=== PATIENT | male | born 1940 | race Caucasian/White ===

== ENCOUNTER 2019-11-10 06:49 | Inpatient (IN) | payer MEDICARE ==
[2019-11-10] MEDS ORDERED: niCARdipine 20MG In NaCl 20 MG/200 ML BAG ONE (06:59)
[2019-11-10] MEDS ORDERED: Morphine 4 MG/ML VIAL ONE ×3 (07:00→08:34)
[2019-11-10] MEDS ORDERED: Ondansetron PF 4 MG/2 ML Vial ONE ×3 (07:05→08:36)
[2019-11-10 07:15] LABS: #Basophils 0.1 thou/uL (0.0-0.2); #Eosinphils 0.3 thou/uL (0.0-0.7); #Lymphocytes 2.6 thou/uL (1.20-3.40); #Neutrophils 10.6 thou/uL (1.40-6.50); %Basophils 0.8 % (0.0-1.0); %Eosinophils 2.1 % (0.0-10.0); %Lymphocytes 17.5 % (21.0-51.0); %Monocytes 6.9 % (0.0-10.0); %Neutrophils 72.7 % (42.0-75.0); Hemoglobin 15.4 g/dL (14.0-18.0); Mean Corpuscular HGB CONC 31.6 g/dL (32.0-36.0); Mean Corpuscular Hemoglobin 29.3 pg (27.0-31.0); Mean Corpuscular Volume 92.8 fL (78.0-98.0); Mean Platelet Volume 7.9 fL (7.4-10.4); Platelet Count 263 thou/uL (130-400); RBC Distribution Width 11.8 % (11.5-14.5); Red Blood Cell (RBC) Count 5.24 mill/uL (4.70-6.10); White Blood Cell (WBC) Count 14.5 thou/uL (4.8-10.8)
[2019-11-10] MEDS ORDERED: Fentanyl 100 MCG/2 ML VIAL ONE ×2 (07:16→09:54)
[2019-11-10 07:23] LABS: Prothrombin Time 13.4 sec (12.0-14.7)
[2019-11-10 07:38] LABS: ALT (SGPT) 21 U/L (8-55); AST (SGOT) 24 U/L (5-34); Albumin 4.1 g/dL (3.4-4.8); Alkaline Phosphatase 64 U/L (40-110); Anion Gap 17 mmol/L (10-20); BUN (Urea Nitrogen) 15 mg/dL (8.4-25.7); Bilirubin, Total 0.6 mg/dL (0.2-1.2); Calc. Creatinine Clearance 0 mL/min (70-130); Calcium 8.8 mg/dL (7.8-10.44); Carbon Dioxide 22 mmol/L (23-31); Chloride 99 mmol/L (98-107); Estimated GFR-MDRD 57; Globulin 2.4 g/dL (2.4-3.5); Glucose 237 mg/dL (83-110); Lipase 28 U/L (8-78); Potassium 3.4 mmol/L (3.5-5.1); Protein, Total 6.5 g/dL (5.8-8.1); Sodium 135 mmol/L (136-145)
[2019-11-10 07:39] LABS: PTT 20.3 sec (22.9-36.1)
--- NOTE | 2019-11-10 07:43 | RAD ---
EXAM: Single view of the chest HISTORY: Back pain and upper abdominal pain COMPARISON: 06/05/2011 FINDINGS: Single view of the chest shows a normal sized cardiomediastinal silhouette. The patient is status post sternotomy. There is no evidence of consolidation, mass, or pleural effusion. The bones are unremarkable IMPRESSION: No evidence of acute cardiopulmonary disease
--- NOTE | 2019-11-10 08:05 | CT ---
Exam: CTA chest with 3-D rendering: CTA abdomen with 3-D rendering: HISTORY: Patient woke up with back pain this morning. COMPARISON: None TECHNIQUE: CT angiogram of the thoracic and abdominal aorta performed in the axial plane. Three-dimen sional reformatted images are submitted for interpretation. FINDINGS: Chest CT: Mediastinum: No mass, lymphadenopathy or hematoma Heart: Normal heart size. No significant pericardial fluid. Coronary arteries: There is coronary calcification. Trachea and central bronchi: Patent Pleural spaces: No pleural effusion. Right lung: Dependent atelectatic changes. No suspicious masses, consolidation or nodules Left lung: Dependent atelectatic changes. No suspicious masses, consolidation or nodules Pneumothorax: None Abdomen CT: Gallbladder: No CT evidence of cholecystitis Portal vein: Patent Solid organs:There are multiple hypodensities scattered throughout the hepatic parenchyma compatible with hepatic cysts. Largest cyst is in the left hepatic lobe. This bilobed cyst measures 5.3 x 2.9 cm Kidneys: Symmetric enhancement. No obstructive uropathy. Hypodensities in the left or right renal cor valentin are favored to represent cysts. Left renal cortical cyst measures 1.8 x 2.0 cm. Right renal cortical cyst measures 1.2 x 1.3 cm. Second right renal cortical cyst measures 1.7 x 1.2 cm. Mesentery: No mass, lymphadenopathy or free air. There is stranding of the abdominal mesentery adjace nt to multiple loops of small bowel. There is bowel wall edema along with intraluminal fluid and mild dilatation of the lumen. Alimentary canal: Multiple fluid-filled dilated loops of small bowel with bowel wall edema. There yolanda ears to be a right lower quadrant internal hernia. The point of transition appears to be on coronal image 45 through 47 and sagittal image 68. There is mild swirling of abdominal mesenteric vessels. CT ANGIOGRAM: No CT evidence for aortic aneurysm or dissection. IMPRESSION: 1. No CT evidence for aortic aneurysm or aortic dissection. 2. Small bowel obstruction with bowel edema as well as mesenteric edema secondary to an internal shyann ia in the right lower quadrant. 3. Results of study discussed with Dr. Loco 11/10/2019 at 8:02 AM code CR
[2019-11-10] MEDS ORDERED: Benzocaine 20% Spray 60 ML CAN ONE (08:14)
[2019-11-10] MEDS ORDERED: Piperacillin/Tazobactam 3.375 GM VIAL ONE (08:17)
[2019-11-10] MEDS ORDERED: Morphine 2 MG/ML SYRINGE ONE (08:34)
[2019-11-10] MEDS ORDERED: Ketorolac Tromethamine 30 MG/ML VIAL ONE (08:34)
[2019-11-10] MEDS ORDERED: Iopamidol-370 76% 500 ML 1 ML ONE (08:46)
[2019-11-10] MEDS ORDERED: EPINEPHrine 1 MG/ML AMP ONE (09:04)
[2019-11-10] MEDS ORDERED: Bupivacaine PF 0.5% 30 ML VIAL ONE (09:04)
--- NOTE | 2019-11-10 09:32 | HP ---
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 Jemal Loco. The patient has never had such pain before. He underwent a CT dissection protocol revealing findings consistent with internal hernia and a bowel obstruction. The patient denies having prior abdominal operations. He is writhing in pain. NG tube has been placed. He states he cannot void, and a Maier catheter has been ordered. White count 14 and hemoglobin 15. Basic metabolic profile normal. Glucose 237. ALLERGIES: NONE. SOCIAL HISTORY: Tobacco, none. Alcohol, none. MEDICATIONS: Not listed, but he takes antihypertensive and cholesterol medications. PAST SURGICAL HISTORY: Coronary artery bypass grafting [place] [address] Basilio Garcia, follows with Dr. Brown every 6 months. Last saw him 6 months ago. He last had a normal stress test 3 years ago. He is asymptomatic from a cardiac standpoint. PAST MEDICAL HISTORY: Peptic ulcer disease, controlled endoscopically, in the past coagulated; elevated cholesterol; hypertension; stable coronary artery disease, no coronary symptoms. REVIEW OF SYSTEMS: Ten-point noncontributory. FAMILY HISTORY: Noncontributory. The patient is , lives with his who is in good health. He has been for 40 years. PHYSICAL EXAMINATION: GENERAL: The patient is in pain. He is an emesis bag in his hand. Alert and oriented x3. Cranial nerves intact. NEUROLOGICAL: Intact. No deficits. LUNGS: Clear to auscultation. CARDIAC: Regular rate and rhythm. No murmur or gallop. ABDOMEN: Soft, mildly distended, non-tympanitic, mildly tender, but no peritoneal signs. EXTREMITIES: No ankle edema. VITAL SIGNS: Blood pressure 140/70, heart rate 78, respiratory rate 18. LABORATORY DATA: Sodium 135, potassium 3.4, BUN 15, White count 14 hemoglobin 15, platelet count 263,000. ASSESSMENT AND PLAN: 1. Acute abdominal pain. CAT scan suggested an internal hernia with characteristic mesenteric edema and swelling. Despite not having prior operations, we will proceed with laparoscopy and open procedure as indicated, possible bowel resection. He understands the risks and benefits, consents. 2. Coronary artery disease, stable. Past coronary artery bypass grafting in 2000. No coronary symptoms. 3. Hypertension. 4. Elevated cholesterol. Job ID: [id number]
[2019-11-10] MEDS ORDERED: Rocuronium Bromide 10 MG/ML (10ML VIAL) ONE (10:51)
[2019-11-10] MEDS ORDERED: Lidocaine 1% PF 5 ML VIAL ONE (10:51)
[2019-11-10] MEDS ORDERED: PHENYLEPHRINE-NS 100 MCG/ML 10 ML SYRINGE ONE (10:51)
[2019-11-10] MEDS ORDERED: PROPOFOL 200 MG/20 ML VIAL ONE (10:51)
[2019-11-10] MEDS ORDERED: Vecuronium 10 MG VIAL ONE (10:51)
[2019-11-10] MEDS ORDERED: Succinylcholine Chloride 20 MG/ML 10 ml SYRINGE FS ONE (10:51)
[2019-11-10] MEDS ORDERED: SUGAMMADEX SODIUM 200 MG/2 ML VIAL ONE (11:09)
[2019-11-10] MEDS ORDERED: hydrALAZINE 20 MG/ML VIAL SLOW IVP PRN (12:21)
[2019-11-10] MEDS ORDERED: Lorazepam 2 MG/ML VIAL SLOW IVP PRN ×2 (12:21→12:47)
[2019-11-10] MEDS ORDERED: Morphine 2 MG/ML VIAL SLOW IVP PRN ×2 (12:21→12:47)
[2019-11-10] MEDS ORDERED: Morphine 4 MG/ML VIAL SLOW IVP PRN (12:21)
[2019-11-10] MEDS ORDERED: Midazolam HCl 2 mg/2 ml Vial ONE (12:23)
[2019-11-10] MEDS ORDERED: fentaNYL Citrate/PF 2,000 MCG in Sodium Chloride 0.9% 60 ML IV SCH (12:47)
[2019-11-10] MEDS ORDERED: Propofol 1,000 MG/100 ML VIAL IV PRN (12:47)
[2019-11-10] MEDS ORDERED: DISCONTINUE PREVIOUS NARCOTIC PAIN MEDICATIONS AND BENZODIAZEPINES FS SCH (12:47)
[2019-11-10] MEDS ORDERED: Fentanyl BOLUS 250 ML IVPB PRN (12:47)
[2019-11-10] MEDS ORDERED: Propofol BOLUS 1,000 MG/100 ML VIAL IV PRN (12:47)
[2019-11-10] MEDS ORDERED: Ventilator Sedation Protocol 1 EACH FS SCH (13:00)
--- NOTE | 2019-11-10 13:07 | RAD ---
Chest one view HISTORY: Dyspnea. Intubated. COMPARISON: Earlier exam on the same date. FINDINGS: Cardiac silhouette is magnified by projection. Pulmonary vasculature is unremarkable. Mediastinum is midline with postoperative changes. Tip of an endotracheal catheter overlies the thora cic inlet. Nasogastric tube is coiled over the stomach. There is calcification the aorta. Mildly suspicious is bases. Pneumothorax. IMPRESSION : Lines and tubes as detailed above. No active cardiopulmonary abnormalities are otherwise demonstrated .
[2019-11-10 13:21] LABS: Actual Bicarbonate (HCO3a) 18.7 mEq/L (22-28); Base Excess (BEa) -6.8 mEq/L (-2.0 to +3.0); CO2 Tension 37.6 mmHg (35.0-45.0); Carboxyhemoglobin (COHb) 0.4 gm% (0.0-3.0); Hemoglobin (Hb) 14.6 g/dL (14.0-18.0); Potassium - ABG Lab 4.66 mmol/L (3.70-5.30); Puncture Site LRA; pH, Arterial 7.32 (7.35-7.45)
[2019-11-10] MEDS ORDERED: Morphine 2 MG/ML VIAL ONE (14:06)
[2019-11-10] MEDS: Piperacillin/Tazobactam 4.5 GM in Sodium Chloride 0.9% 100 ML IVPB SCH ×2 (14:14→19:45)
[2019-11-10] MEDS ORDERED: Lorazepam 2 MG/ML VIAL ONE (14:43)
[2019-11-10] MEDS ORDERED: Pantoprazole 40 MG VIAL IVP SCH (14:45)
--- NOTE | 2019-11-10 15:45 | CON ---
DATE OF CONSULTATION: 11/10/2019 REASON FOR CONSULTATION: Postoperative ventilator management. CONSULTING PHYSICIAN: Arron Blount MD The following encompasses 35 minutes of critical care time. HISTORY OF PRESENT ILLNESS: Mr. Warner is a 79-year-old who presented to the ER earlier today with central abdominal pain that started this morning about 4 o'clock. He was taken to the OR for exploratory laparotomy and found to have a large segment of small bowel, which was ischemic. The adhesion obstructing was removed. The patient has been left open to see what the bowel looks like tomorrow - whether or not he will need resection or he will get recovery. PAST MEDICAL HISTORY: 1. Coronary artery disease, requiring bypass surgery. 2. Hyperlipidemia. 3. Hypertension. PAST SURGICAL HISTORY: Bypass surgery. REVIEW OF SYSTEMS: Cannot be obtained because he is on ventilator. ALLERGIES: NONE. MEDICATIONS: Prior to admission, not available for review at this time. Current inpatient medications listed - reviewed on chart. PHYSICAL EXAMINATION: VITAL SIGNS: Heart rate 82, blood pressure 89/62, and O2 saturation 100%, and respiratory rate 18. GENERAL: He is currently intubated and sedated. HEENT: Unremarkable. NECK: No adenopathy or JVD. LUNGS: Clear. CARDIAC: S1 and S2. Regular. ABDOMEN: Open wound VAC in place. EXTREMITIES: No clubbing, cyanosis, or edema. IMAGING DATA: Chest x-ray shows no mass, effusion, or infiltrate. LABORATORY DATA: White blood cell count 14, hematocrit , and platelet count 263. ABG is pending. Sodium 135, potassium 3.4, chloride 99, CO2 of , BUN 15, creatinine 1.2, and glucose 237. Lactate 3.8. ASSESSMENT: 1. Ischemic bowel. 2. Acute respiratory failure, requiring mechanical ventilation - mainly left intubated for second-look operation tomorrow. PLAN: We will be happy to follow with you. Reviewed orders on chart. I will add some Protonix. We will follow. Job ID: [id number]
--- NOTE | 2019-11-10 15:59 | OP ---
DATE OF PROCEDURE: 11/10/2019 PREOPERATIVE DIAGNOSES: 1. Acute vascular insufficiency. 2. Internal hernia in a patient without prior surgery, abdominal. POSTOPERATIVE DIAGNOSES: 1. Acute vascular insufficiency. 2. Internal hernia in a patient without prior surgery, abdominal. 3. Omental adhesion to the pelvis, causing internal hernia and ischemic bowel. PROCEDURES PERFORMED: 1. Exploratory laparoscopy, converted to laparotomy. 2. Lysis of adhesions. 3. Abdominal washout. 4. ABThera placement (open abdomen) with plan to return to the operating room tomorrow to assess ischemic bowel recovery. ANESTHESIA: General, local with 0.5% Marcaine 30 mL, mixed with 1% Xylocaine with epinephrine 20 mL. DESCRIPTION OF PROCEDURE: The patient was taken to the operating room where under general anesthesia, abdomen was prepared with ChloraPrep and draped in routine fashion. Local anesthetic was infiltrated in the skin and subcutaneous tissue about the laparoscopic port sites. Left lateral subcostal incision made. Pneumoperitoneum to 15 mmHg obtained with a Veress needle, replacing with a 5 port. Left lateral midabdominal incision made and a 5 port placed. Left lower quadrant lateral incision made and a 5 port placed. Once the laparoscope was inserted, ischemic bowel was evident and conversion to laparotomy made. Midline incision made, centered about the umbilicus, carried down to skin, subcutaneous tissue, and midline fascia. Omentum was adhesed to the patient's right lower quadrant, creating a window in adhesion and acute vascular insufficiency of a long segment of small bowel. This omental adhesion was divided with the LigaSure. The small bowel was then assessed and it was of questionable viability, but not frankly necrotic. Thus, abdomen was washed out with saline, and sponge, instrument, and needle counts were correct. ABThera placed with open abdomen with intention to return to the operating room tomorrow to assess bowel viability and need for resection. Job ID: [id number]
[2019-11-10] MEDS ORDERED: Sodium Chloride 0.9% 30 ML ONE (19:52)
[2019-11-10] MEDS: Enoxaparin Sodium 40 MG/0.4 ML SYRINGE SC SCH (20:37)
[2019-11-10] MEDS: Lactated Ringer's 1,000 ML IV SCH (20:38)
[2019-11-10 22:56] VITALS: BMI 23.1
[2019-11-11] MEDS: Lactated Ringer's 1,000 ML IV SCH ×5 (00:50→21:34)
[2019-11-11] MEDS: Piperacillin/Tazobactam 4.5 GM in Sodium Chloride 0.9% 100 ML IVPB SCH ×4 (01:31→21:35)
[2019-11-11 05:08] LABS: Band 21 % (5-11); Hemoglobin 13.4 g/dL (14.0-18.0); Hypochromia SLIGHT = 6-15 cells (100X) (0-5/hpf); Lymphocytes 5 % (21-51); MDiff Complete? YES; Mean Corpuscular HGB CONC 31.4 g/dL (32.0-36.0); Mean Corpuscular Volume 92.5 fL (78.0-98.0); Mean Platelet Volume 7.7 fL (7.4-10.4); Monocytes 2 % (0-10); Neutrophil 72 % (42-75); Platelet Count 234 thou/uL (130-400); Platelet Morphology Comment Appears Adequate; RBC Distribution Width 11.9 % (11.5-14.5); Red Blood Cell (RBC) Count 4.63 mill/uL (4.70-6.10); White Blood Cell (WBC) Count 19.1 thou/uL (4.8-10.8)
[2019-11-11 05:11] LABS: Anion Gap 11 mmol/L (10-20); BUN (Urea Nitrogen) 24 mg/dL (8.4-25.7); Calc. Creatinine Clearance 64 mL/min (70-130); Calcium 7.7 mg/dL (7.8-10.44); Carbon Dioxide 23 mmol/L (23-31); Chloride 107 mmol/L (98-107); Estimated GFR-MDRD 79; Glucose 130 mg/dL (83-110); Potassium 4.8 mmol/L (3.5-5.1); Sodium 136 mmol/L (136-145)
[2019-11-11 07:35] LABS: Actual Bicarbonate (HCO3a) 21.4 mEq/L (22-28); Base Excess (BEa) -2.2 mEq/L (-2.0 to +3.0); CO2 Tension 33.4 mmHg (35.0-45.0); Calcium, Ionized (arterial) 1.13 mmol/L (1.12-1.30); Carboxyhemoglobin (COHb) 0.4 gm% (0.0-3.0); O2 Tension (PaO2), arterial 113.5 mmHg (> 70.0); Potassium - ABG Lab 4.27 mmol/L (3.70-5.30); pH, Arterial 7.43 (7.35-7.45)
--- NOTE | 2019-11-11 07:36 | PRG ---
DATE OF SERVICE: 11/11/2019 SUBJECTIVE: The patient is intubated from his operation yesterday. He is going back for a second look at 12:30 today. He is awake. He is able to follow commands without difficulty. OBJECTIVE: VITAL SIGNS: Pulse 89, blood pressure 119/70, O2 saturation 98%, respiratory rate 24, temperature 99. HEENT: Unremarkable. NECK: No adenopathy or JVD. LUNGS: Clear anteriorly. CARDIAC: S1, S2 regular. ABDOMEN: Open. EXTREMITIES: No edema. LABORATORY DATA: White blood cell count 19, hematocrit 42.8, and platelet count 234. Sodium 136, potassium 4.8, chloride 107, CO2 of 23, BUN 24, creatinine 0.9, and glucose 113. ASSESSMENT: 1. Ischemic small bowel. 2. Postop ventilator. PLAN: The patient is going back for a second look this morning. If it looks okay, then he can be extubated afterward. Job ID: [id number]
[2019-11-11] MEDS: Pantoprazole 40 MG VIAL IVP SCH (08:29)
[2019-11-11] MEDS ORDERED: Ondansetron PF 4 MG/2 ML Vial ONE (09:20)
[2019-11-11] MEDS ORDERED: Rocuronium Bromide 10 MG/ML (10ML VIAL) ONE (09:20)
[2019-11-11] MEDS ORDERED: PHENYLEPHRINE-NS 100 MCG/ML 10 ML SYRINGE ONE (09:20)
[2019-11-11] MEDS ORDERED: PROPOFOL 200 MG/20 ML VIAL ONE (09:20)
[2019-11-11] MEDS ORDERED: Dexamethasone 20 MG/5 ML VIAL ONE (09:20)
[2019-11-11] MEDS ORDERED: Fentanyl 100 MCG/2 ML VIAL ONE ×3 (10:11→13:55)
[2019-11-11] MEDS ORDERED: SUGAMMADEX SODIUM 200 MG/2 ML VIAL ONE (10:11)
[2019-11-11] MEDS ORDERED: Naloxone HCl 0.4 mg/ml Vial IV PRN (13:57)
[2019-11-11] MEDS ORDERED: Zolpidem Tartrate 5 MG TAB PO PRN (13:57)
[2019-11-11] MEDS ORDERED: diphenhydrAMINE 50 MG/ML VIAL IM PRN (13:57)
[2019-11-11] MEDS ORDERED: fentaNYL Citrate/PF 2,000 MCG in Sodium Chloride 0.9% 60 ML IV PRN (13:57)
[2019-11-11] MEDS ORDERED: diphenhydrAMINE 50 MG/ML VIAL IVP PRN (13:57)
[2019-11-11] MEDS ORDERED: diphenhydrAMINE 25 MG CAP PO PRN (13:57)
[2019-11-11] MEDS ORDERED: Communication Order-Pharmacy FS SCH (14:00)
[2019-11-11] MEDS ORDERED: Albumin 5% 500 ML ONE (14:48)
[2019-11-11] MEDS ORDERED: Metoprolol Tartrate 5 MG/5 ML VIAL ONE (15:16)
--- NOTE | 2019-11-11 15:49 | OP ---
DATE OF PROCEDURE: 11/11/2019 PREOPERATIVE DIAGNOSES: 1. Acute vascular insufficiency. 2. Small bowel due to internal hernia from omental adhesions, planned second-look operation stage. POSTOPERATIVE DIAGNOSES: 1. Acute vascular insufficiency. 2. Small bowel due to internal hernia from omental adhesions, planned second-look operation stage. PROCEDURES PERFORMED: 1. Exploratory laparotomy. 2. Planned second-look laparotomy stage with small-bowel resection and anastomosis. Note, JENSEN incisional wound VAC left in place for 5 to 7 days postoperatively. DESCRIPTION OF PROCEDURE: The patient was taken to the operating room where under general anesthesia, ABThera was removed. Abdomen was prepared with Betadine and draped in routine fashion. Small bowel brought into the wound and the bowel and question distal jejunum and proximal ileum was slightly better, but the long segment of this was gangrenous and thought not to recover. There was some recovering segment about 6 inches, but bowel proximal and distal to this was of excellent condition, thus decision made to resect this, dividing the mesentery with the LigaSure and performing a [id number] staple anastomosis with 75 SHARRI stapler, completing the anastomosis, reinforcing the staple line with interrupted seromuscular suture of 3-0 silk and closed the mesenteric defect with 2-0 silk. Good lumen was palpated. Good hemostasis noted. Bowel lumen checked and was without leak. Abdominal cavity irrigated with saline solution. Irrigant evacuated. Sponge, needle, and instrument counts were correct. Seprafilm applied between the viscera and abdominal wall. Fascia closed with #1 PDS. Skin and subcutaneous tissues irrigated. Good hemostasis noted. Skin approximated loosely with markus. A JENSEN dressing applied. The patient tolerated the procedure well. Job ID: [id number]
[2019-11-11] MEDS: Enoxaparin Sodium 40 MG/0.4 ML SYRINGE SC SCH (20:51)
[2019-11-11] MEDS: Ondansetron PF 4 MG/2 ML Vial IVP PRN (21:49)
[2019-11-12] MEDS: Piperacillin/Tazobactam 4.5 GM in Sodium Chloride 0.9% 100 ML IVPB SCH ×4 (03:34→21:36)
[2019-11-12] MEDS: Lactated Ringer's 1,000 ML IV SCH ×3 (03:35→18:05)
[2019-11-12 05:43] LABS: #Lymphocytes 1.1 thou/uL (1.20-3.40); #Monocytes 1.3 thou/uL (0.11-0.59); #Neutrophils 9.9 thou/uL (1.40-6.50); %Basophils 0.2 % (0.0-1.0); %Eosinophils 0.2 % (0.0-10.0); %Lymphocytes 8.6 % (21.0-51.0); %Monocytes 10.4 % (0.0-10.0); %Neutrophils 80.7 % (42.0-75.0); Hemoglobin 10.9 g/dL (14.0-18.0); Mean Corpuscular HGB CONC 31.2 g/dL (32.0-36.0); Mean Corpuscular Hemoglobin 29.3 pg (27.0-31.0); Mean Platelet Volume 7.9 fL (7.4-10.4); Platelet Count 181 thou/uL (130-400); RBC Distribution Width 12.1 % (11.5-14.5); Red Blood Cell (RBC) Count 3.74 mill/uL (4.70-6.10); White Blood Cell (WBC) Count 12.3 thou/uL (4.8-10.8)
[2019-11-12 06:08] LABS: Anion Gap 10 mmol/L (10-20); BUN (Urea Nitrogen) 17 mg/dL (8.4-25.7); Calc. Creatinine Clearance 61 mL/min (70-130); Calcium 8.3 mg/dL (7.8-10.44); Carbon Dioxide 25 mmol/L (23-31); Chloride 109 mmol/L (98-107); Estimated GFR-MDRD 75; Glucose 119 mg/dL (83-110); Potassium 4.3 mmol/L (3.5-5.1); Sodium 140 mmol/L (136-145)
[2019-11-12] MEDS ORDERED: Non-Formulary Item 1 EACH (Valsartan/Hydrochlorothiazide [Diovan Hct] 1 TABLET) PO SCH (09:00)
[2019-11-12] MEDS: Pantoprazole 40 MG VIAL IVP SCH (09:00)
[2019-11-12] MEDS: Ketorolac Tromethamine 30 MG/ML VIAL IVP PRN ×2 (13:51→21:37)
[2019-11-12] MEDS: Ondansetron PF 4 MG/2 ML Vial IVP PRN (13:55)
[2019-11-12] MEDS: Amlodipine 5 MG TAB PO SCH (17:42)
[2019-11-12] MEDS: Hydrochlorothiazide 25 MG TAB PO SCH (17:42)
[2019-11-12] MEDS: Rosuvastatin 20 MG TAB PO SCH (17:43)
[2019-11-12] MEDS: Valsartan 80 MG TAB PO SCH (17:43)
--- NOTE | 2019-11-12 18:17 | PRG ---
DATE OF SERVICE: 11/12/2019 SUBJECTIVE: Shaheen Warner is doing well today. NG tube was removed last night. He has not had any nausea or vomiting. He feels slightly bloated. There is no belching. The patient's Maier catheter has been removed. He is urinating well. He is walking frequently. The patient has an incisional wound VAC, which is functioning well. OBJECTIVE: VITAL SIGNS: Temperature 97.9 degrees, pulse 95, blood pressure 132/79. LUNGS: Clear to auscultation. CARDIAC: Regular rate and rhythm without murmur or gallop. ABDOMEN: Soft, slightly tympanitic. JENSEN wound incisional VAC in place. Diminished bowel sounds. EXTREMITIES: Without edema. LABORATORY DATA: White count 12 and hemoglobin 10.9. Basic metabolic profile is normal. ASSESSMENT AND PLAN: Overall doing well. The patient had a small bowel resection, and we will continue sips and chips at this time. Await more definitive bowel function hopefully to avoid distention and to avoid NG tube. Hopefully, we can treat this without NG tube. He has a PORTABLE ROUTER OPERATOR in place. We will decrease his IV fluid rate to [address] Street is seeing him over the weekend and I will see him next week. Dr. Street will advance his diet as appropriate. Continue PORTABLE ROUTER OPERATOR for pain control. Job ID: [id number]
[2019-11-12] MEDS: Enoxaparin Sodium 40 MG/0.4 ML SYRINGE SC SCH (21:38)
[2019-11-13] MEDS: Ondansetron PF 4 MG/2 ML Vial IVP PRN ×3 (04:01→21:07)
[2019-11-13] MEDS: Piperacillin/Tazobactam 4.5 GM in Sodium Chloride 0.9% 100 ML IVPB SCH ×4 (04:01→21:07)
[2019-11-13] MEDS: Lactated Ringer's 1,000 ML IV SCH ×2 (04:01→16:30)
[2019-11-13] MEDS: Valsartan 80 MG TAB PO SCH (09:49)
[2019-11-13] MEDS: Pantoprazole 40 MG VIAL IVP SCH (09:49)
[2019-11-13] MEDS: Rosuvastatin 20 MG TAB PO SCH (09:50)
[2019-11-13] MEDS: Hydrochlorothiazide 25 MG TAB PO SCH (09:50)
[2019-11-13] MEDS: Amlodipine 5 MG TAB PO SCH ×2 (11:58→16:34)
[2019-11-13] MEDS: Promethazine HCl 25 MG/ML VIAL IM PRN ×2 (14:09→19:17)
[2019-11-13] MEDS: Loratadine 10 MG TAB PO SCH (16:33)
--- NOTE | 2019-11-13 18:55 | PDOC.BPN ---
- Brief Progress Note Doing well s/p bowel resection. Postoperative pain well controlled with current regimen. Tolerating liquid diet, without nausea or vomiting. Endorses flatus but denies bowel movements. Ambulating independently. EXAM: General: Alert and oriented, no acute distress, resting comfortably Pulmonary: No dyspnea or difficulty breathing Abdomen: Soft, nondistended, appropriate tenderness. CV: Regular rate and rhythm, palpable distal pulses Extremities: No edema Labs/imaging: Labs reviewed. Leukocytosis improved to 12.3. Hemoglobin shift from 13.4-10.9. 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
[2019-11-13] MEDS: Enoxaparin Sodium 40 MG/0.4 ML SYRINGE SC SCH (21:06)
[2019-11-14] MEDS: Promethazine HCl 25 MG/ML VIAL IM PRN ×3 (00:29→21:51)
[2019-11-14] MEDS: Ketorolac Tromethamine 30 MG/ML VIAL IVP PRN ×2 (00:35→06:44)
[2019-11-14] MEDS: HYDROcodone/Acetaminophen 7.5/325 mg Tablet PO PRN ×2 (00:37→09:45)
[2019-11-14] MEDS: Piperacillin/Tazobactam 4.5 GM in Sodium Chloride 0.9% 100 ML IVPB SCH ×4 (04:06→21:32)
[2019-11-14] MEDS: Ondansetron PF 4 MG/2 ML Vial IVP PRN ×3 (06:44→20:20)
[2019-11-14] MEDS: Lactated Ringer's 1,000 ML IV SCH ×2 (06:59→14:53)
[2019-11-14] MEDS: Rosuvastatin 20 MG TAB PO SCH (09:44)
[2019-11-14] MEDS: HCTZ PO SCH (09:44)
[2019-11-14] MEDS: Polyethylene Glycol 3350 17 GM Packet PO SCH (09:44)
[2019-11-14] MEDS: VALSARTAN PO SCH (09:44)
[2019-11-14] MEDS: Pantoprazole 40 MG VIAL IVP SCH (09:46)
[2019-11-14] MEDS: Morphine 2 MG/ML VIAL SLOW IVP PRN ×4 (10:33→21:32)
[2019-11-14] MEDS: Amlodipine 5 MG TAB PO SCH (16:14)
[2019-11-14] MEDS: Loratadine 10 MG TAB PO SCH (16:14)
[2019-11-14] MEDS: Enoxaparin Sodium 40 MG/0.4 ML SYRINGE SC SCH (20:20)
--- NOTE | 2019-11-14 21:30 | PDOC.BPN ---
- Brief Progress Note Doing well s/p bowel resection. Postoperative pain reasonably controlled with current regimen, although he is having some trouble tolerating oral analgesia. Tolerating clears poorly with continued nausea and nonbilious vomiting endorsing flatus but no bowel movements. Ambulating independently. EXAM: VS: T 97.9 HR 76 BP 146/90 RR 20 SpO2 [ ] General: Alert and oriented, no acute distress, resting comfortably Pulmonary: No dyspnea or difficulty breathing Abdomen: Soft, moderately-distended, incisions clean, VAC dressing in place CV: Regular rate and rhythm, palpable distal pulses Extremities: No edema I/O: 187 oral intake Multiple voids for UOP LABORATORY / IMAGING: No new labs today PLAN: 79-year-old male status post small bowel resection, now with ileus Continue with ice chips Continue transition to oral medication. Morphine prescribed as needed
[2019-11-15] MEDS: Piperacillin/Tazobactam 4.5 GM in Sodium Chloride 0.9% 100 ML IVPB SCH ×4 (03:09→20:58)
[2019-11-15] MEDS: Promethazine HCl 25 MG/ML VIAL IM PRN ×3 (03:10→21:51)
[2019-11-15] MEDS: Morphine 2 MG/ML VIAL SLOW IVP PRN ×3 (03:10→20:57)
[2019-11-15] MEDS: Lactated Ringer's 1,000 ML IV SCH ×2 (06:40→16:32)
[2019-11-15] MEDS: Ondansetron PF 4 MG/2 ML Vial IVP PRN ×3 (06:54→23:48)
[2019-11-15] MEDS: HCTZ PO SCH (08:45)
[2019-11-15] MEDS: VALSARTAN PO SCH (08:45)
[2019-11-15] MEDS: Rosuvastatin 20 MG TAB PO SCH (08:46)
[2019-11-15] MEDS: Pantoprazole 40 MG VIAL IVP SCH (08:47)
[2019-11-15] MEDS: Polyethylene Glycol 3350 17 GM Packet PO SCH (08:47)
[2019-11-15] MEDS: Ketorolac Tromethamine 30 MG/ML VIAL IVP PRN ×2 (13:31→19:41)
--- NOTE | 2019-11-15 14:13 | PRG ---
DATE OF SERVICE: 11/15/2019 SUBJECTIVE: Shaheen Warner Junior is a 79-year-old male. Mr. Warner is doing well postoperatively. He has had some nausea, vomiting, though passing flatus. He did take some liquids this morning, but could not take much. His abdomen seems to be distended. OBJECTIVE: VITAL SIGNS: Temperature 98 degrees, heart rate 99, blood pressure 168/95. LUNGS: Clear to auscultation. CARDIAC: Regular rate and rhythm. No murmur or gallop. ABDOMEN: Soft, mildly distended, non-tympanitic. An incisional wound suction device in place. LABORATORY DATA: None today. ASSESSMENT: Localized ileus. PLAN: To make him n.p.o. except for ice chips and sips. Wait for abdominal distention to resolve. We will check laboratories tomorrow. We will provide parenteral analgesics until GI function is better. Job ID: [id number]
[2019-11-15] MEDS: Amlodipine 5 MG TAB PO SCH (18:12)
[2019-11-15] MEDS: Loratadine 10 MG TAB PO SCH (18:13)
[2019-11-15] MEDS: Enoxaparin Sodium 40 MG/0.4 ML SYRINGE SC SCH (20:57)
[2019-11-16] MEDS: Lactated Ringer's 1,000 ML IV SCH ×3 (00:33→16:42)
[2019-11-16] MEDS: Promethazine HCl 25 MG/ML VIAL IM PRN ×3 (03:37→21:24)
[2019-11-16] MEDS: Morphine 2 MG/ML VIAL SLOW IVP PRN ×3 (03:37→21:24)
[2019-11-16] MEDS: Piperacillin/Tazobactam 4.5 GM in Sodium Chloride 0.9% 100 ML IVPB SCH ×4 (04:28→20:50)
[2019-11-16 05:43] LABS: #Basophils 0.1 thou/uL (0.0-0.2); #Eosinphils 0.2 thou/uL (0.0-0.7); #Neutrophils 6.2 thou/uL (1.40-6.50); %Basophils 0.8 % (0.0-1.0); %Eosinophils 2.7 % (0.0-10.0); %Lymphocytes 11.9 % (21.0-51.0); %Monocytes 11.6 % (0.0-10.0); Hemoglobin 10.5 g/dL (14.0-18.0); Mean Corpuscular HGB CONC 32.5 g/dL (32.0-36.0); Mean Corpuscular Hemoglobin 29.8 pg (27.0-31.0); Mean Corpuscular Volume 91.7 fL (78.0-98.0); Mean Platelet Volume 6.7 fL (7.4-10.4); Platelet Count 224 thou/uL (130-400); RBC Distribution Width 11.8 % (11.5-14.5); Red Blood Cell (RBC) Count 3.52 mill/uL (4.70-6.10); White Blood Cell (WBC) Count 8.5 thou/uL (4.8-10.8)
[2019-11-16 06:03] LABS: Anion Gap 17 mmol/L (10-20); BUN (Urea Nitrogen) 12 mg/dL (8.4-25.7); Calc. Creatinine Clearance 70 mL/min (70-130); Calcium 7.7 mg/dL (7.8-10.44); Carbon Dioxide 22 mmol/L (23-31); Chloride 102 mmol/L (98-107); Estimated GFR-MDRD 87; Glucose 69 mg/dL (83-110); Potassium 3.7 mmol/L (3.5-5.1); Sodium 137 mmol/L (136-145)
[2019-11-16] MEDS: Ondansetron PF 4 MG/2 ML Vial IVP PRN (10:02)
[2019-11-16] MEDS: Pantoprazole 40 MG VIAL IVP SCH (10:03)
[2019-11-16] MEDS: VALSARTAN PO SCH (10:03)
[2019-11-16] MEDS: HCTZ PO SCH (10:03)
[2019-11-16] MEDS: Ketorolac Tromethamine 30 MG/ML VIAL IVP PRN (10:09)
[2019-11-16] MEDS: Polyethylene Glycol 3350 17 GM Packet PO SCH (10:09)
[2019-11-16] MEDS: Rosuvastatin 20 MG TAB PO SCH (10:09)
--- NOTE | 2019-11-16 10:22 | PRG ---
DATE OF SERVICE: 11/16/2019 SUBJECTIVE: Shaheen Warner Junior is doing well today. He had vomited again yesterday. He has had black stools and passed flatus. He thinks his abdomen is less distended today than yesterday. He still is on sips and chips only. OBJECTIVE: VITAL SIGNS: Temperature 98.5 degrees, heart rate 75, and blood pressure 147/75. LUNGS: Clear to auscultation. CARDIAC: Regular rate and rhythm without murmur or gallop. ABDOMEN: Soft, slightly tympanitic, less distended today than yesterday. EXTREMITIES: Unremarkable. LABORATORIES: CBC and basic metabolic are normal. ASSESSMENT AND PLAN: Postoperative ileus after acute vascular insufficiency of small bowel as expected. Continue sips and chips. Await better bowel function. The patient has good activity level. I reassured that the black stools and occasional blood in his stool are normal. His hemoglobin is stable. He is not actively bleeding. Advance diet when GI function improves. His abdominal incisional wound VAC was removed. His wound looks good. He can shower and bathe. Job ID: [id number]
[2019-11-16] MEDS: Amlodipine 5 MG TAB PO SCH (16:47)
[2019-11-16] MEDS: Loratadine 10 MG TAB PO SCH (17:42)
[2019-11-16] MEDS: Enoxaparin Sodium 40 MG/0.4 ML SYRINGE SC SCH (20:49)
[2019-11-17] MEDS: Morphine 2 MG/ML VIAL SLOW IVP PRN ×2 (01:37→20:55)
[2019-11-17] MEDS: Ondansetron PF 4 MG/2 ML Vial IVP PRN ×3 (01:42→17:52)
[2019-11-17] MEDS: Lactated Ringer's 1,000 ML IV SCH ×2 (01:42→17:02)
[2019-11-17] MEDS: Piperacillin/Tazobactam 4.5 GM in Sodium Chloride 0.9% 100 ML IVPB SCH ×4 (04:59→20:56)
[2019-11-17] MEDS: Polyethylene Glycol 3350 17 GM Packet PO SCH (08:26)
[2019-11-17] MEDS: HCTZ PO SCH (08:27)
[2019-11-17] MEDS: Pantoprazole 40 MG VIAL IVP SCH (08:27)
[2019-11-17] MEDS: VALSARTAN PO SCH (08:27)
[2019-11-17] MEDS: Rosuvastatin 20 MG TAB PO SCH (10:37)
[2019-11-17] MEDS: Ketorolac Tromethamine 30 MG/ML VIAL IVP PRN ×2 (10:43→17:53)
--- NOTE | 2019-11-17 14:16 | PRG ---
DATE OF SERVICE: 11/17/2019 SUBJECTIVE: Shaheen WarnerJr, is doing well today. He had some nausea but no vomiting. He had bowel movements yesterday, none today. He still feels bloated, slightly nauseated. He could not eat much of his broth on his liquid tray. I have told him to minimize his liquid consumption until the nausea and bloating goes away. OBJECTIVE: VITAL SIGNS: Temperature 97.9, pulse 72, blood pressure 150/79. LUNGS: Clear to auscultation. CARDIAC: Regular rate and rhythm. No murmur or gallop. ABDOMEN: Soft, mildly distended, tympanitic. Midline wound looks good. LABORATORY DATA: No laboratories today. ASSESSMENT/PLAN: Sluggish GI function. Will continue minimizing oral intake and until his GI function improves and his tympany resolves. We will obtain abdominal x-rays in the morning. Job ID: [id number]
--- NOTE | 2019-11-17 15:22 | EKG ---
Test Reason : Blood Pressure : / mmHG Vent. Rate : 127 BPM Atrial Rate : 129 BPM P-R Int : 000 ms QRS Dur : 102 ms QT Int : 342 ms P-R-T Axes : 000 -54 102 degrees QTc Int : 497 ms Supraventricular tachycardia Left anterior fascicular block Abnormal ECG Confirmed by MARGIE SANCHEZ M.D. ([id number] on 11/17/2019 3:22:01 PM Referred By: ALEXANDRO Confirmed By:MARGIE SANCHEZ M.D.
[2019-11-17] MEDS: Amlodipine 5 MG TAB PO SCH (16:54)
[2019-11-17] MEDS: Loratadine 10 MG TAB PO SCH (16:54)
[2019-11-17] MEDS: Enoxaparin Sodium 40 MG/0.4 ML SYRINGE SC SCH (20:24)
[2019-11-18] MEDS: Piperacillin/Tazobactam 4.5 GM in Sodium Chloride 0.9% 100 ML IVPB SCH ×2 (04:16→09:34)
[2019-11-18] MEDS: Lactated Ringer's 1,000 ML IV SCH (05:26)
[2019-11-18 07:49] VITALS: BP 128/74
[2019-11-18] MEDS: HCTZ PO SCH (09:33)
[2019-11-18] MEDS: VALSARTAN PO SCH (09:33)
[2019-11-18] MEDS: Rosuvastatin 20 MG TAB PO SCH (09:34)
[2019-11-18] MEDS: Pantoprazole 40 MG VIAL IVP SCH (09:35)
[2019-11-18] MEDS: Polyethylene Glycol 3350 17 GM Packet PO SCH (09:36)
--- NOTE | 2019-11-18 11:03 | RAD ---
ABDOMINAL SURVEY WITH UPRIGHT CHEST AND 2 VIEW ABDOMEN: INDICATION: Postop ileus. FINDINGS: Upright chest shows small bilateral effusions and patchy atelectasis or infiltrate in the left lung b ase. Two views of the abdomen show gas-filled distended loops of small bowel. Scattered gas and stool in the colon is unremarkable. Anterior skin markus. No free air identified. IMPRESSION: Gas-filled dilated loops of small bowel with differential air fluid levels. Postop ileus versus smal l bowel obstruction. POS: AH
[2019-11-18] MEDS ORDERED: Ibuprofen 600 MG TAB PO PRN (11:55)
[2019-11-18] MEDS ORDERED: Acetaminophen 500 MG TAB PO PRN (11:55)
[2019-11-18] MEDS ORDERED: traMADol HCl 50 MG TAB PO PRN (11:55)
[2019-11-18 13:45] VITALS: TEMP 97.8
--- NOTE | 2019-11-18 18:17 | DIS ---
DATE OF ADMISSION: 11/10/2019 DATE OF DISCHARGE: 11/18/2019 DISCHARGE DIAGNOSES: Acute vascular insufficiency, gangrenous bowel secondary to internal hernia. No prior history of abdominal operations. Omentum adhesed to the right lower quadrant. PROCEDURE THIS HOSPITALIZATION: CT scan dissection protocol, CT scan of the abdomen and pelvis, on 11/09 laparoscopy converted to laparotomy with adhesiolysis, gangrenous small bowel appreciated, ABThera placed, second-look operation on 11/10 with closure and after small-bowel resection, 87 cm mid small bowel, terminal ileum and proximal jejunum intact, prolonged postoperative ileus. HISTORY: A 79-year-old male without prior abdominal operation history presents with acute onset of abdominal pain. Emergency room CT angio performed noting absence of dissection, but findings of a swirling small bowel mesentery and internal hernia. He is taken to the operating room for laparoscopy after resuscitation with IV antibiotic administration. He is noted to have a gangrenous bowel for which an open laparotomy was performed. The adhesion released. The bowel did improve somewhat in color but it was questionable. Thus, an ABThera was placed. It was left on the ventilator overnight and returned to the operating room the next day. The bowel had not recovered as much as hoped and a small-bowel resection undertaken along with anastomosis. Postoperatively, he was extubated, transferred to the surgical floor and had an ileus. An NG tube was left for short while, but removed after bowel function resumed. He tolerated his diet. He was sent home with Tylenol, ibuprofen p.r.n. pain, Ultram p.r.n. refractory pain. No lifting over 25 pounds for 6 weeks and follow up in my office next week for staple removal. Job ID: [id number]
== END 2019-11-18 15:45 | disposition home or self-care (01) | DRG 329 ==
LOC: ERS 06:49 → SURG A 11:00 → CCU 22:06 → SURG B 11-11 14:12
PROVIDERS: ADMIT Specialist; ATTEND Specialist
PROC: 0DNU0ZZ Release Omentum, Open Approach (ICD-10-PCS; 2019-11-10)
PROC: 0DJD4ZZ Inspection of Lower Intestinal Tract, Percutaneous Endoscopic Approach (ICD-10-PCS; 2019-11-10)
PROC: 0DB80ZZ Excision of Small Intestine, Open Approach (ICD-10-PCS; principal; 2019-11-11)
DX: K55.019 Acute (reversible) ischemia of small intestine, extent unspecified (principal); K46.1 Unspecified abdominal hernia with gangrene; J96.00 Acute respiratory failure, unspecified whether with hypoxia or hypercapnia; K56.7 Ileus, unspecified; E78.00 Pure hypercholesterolemia, unspecified; I10 Essential (primary) hypertension; I25.10 Atherosclerotic heart disease of native coronary artery without angina pectoris; K27.9 Peptic ulcer, site unspecified, unspecified as acute or chronic, without hemorrhage or perforation; Z95.1 Presence of aortocoronary bypass graft; Z79.899 Other long term (current) drug therapy
CPT/HCPCS: 36415; 71045; 71275; 72191; 74022; 74175; 80048; 80053; 82805; 83605; 83690; 84484; 85025; 85610; 85730; 88307; 93005; 93010; 94002; 94003; 96365; 96374; 96375; 96376; C9113; J0171; J1100; J1650; J1885; J2060; J2250; J2270; J2405; J2543; J2550; J2704; J3010; J3490; P9045; Q9967; S0020